=== PATIENT | female | born 1960 | race Caucasian/White ===

== ENCOUNTER 2017-03-01 05:27 | Observation (INO) | payer OTHER ==
--- NOTE | 2017-02-26 10:52 | GHP ---
[f rep st] PREOP HISTORY AND PHYSICAL DATE OF ADMISSION: 03/01/2017 CHIEF COMPLAINT: Ventral incisional hernia. HISTORY OF PRESENT ILLNESS: The patient is a 56-year-old female with a history of a small bowel obs truction requiring laparotomy and adhesiolysis about a year ago. At that time, she had a recurrent ventral hernia that was also repaired as part of her incision. She returns today with a new bulge a t the superior part of her upper midline scar, directly adjacent to an old open gallbladder scar. T he hernia has gotten larger and is becoming painful. She particularly notices this after eating. S he does wear a supportive abdominal garment that keeps it mostly reduced. PAST MEDICAL HISTORY: Recurrent bowel obstructions and ventral hernias as described above. PAST SURGICAL HISTORY: Appendectomy, open cholecystectomy, ventral hernia repair, laparotomy for sm all bowel obstruction with adhesiolysis and repair of recurrent ventral hernia. MEDICATIONS: Wellbutrin, Provera. ALLERGIES: No known drug allergies. SOCIAL HISTORY: Patient is . She denies tobacco use. 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 REVIEW OF SYSTEMS: 10-point review of systems is negative aside from that in the HPI. PHYSICAL EXAMINATION: GENERAL: Reveals an alert and oriented, extremely thin, 56-year-old female, in no acute distress. HEENT: Normocephalic, atraumatic. Pupils equal and round. NECK: Supple. CHEST: Clear to auscultation bilaterally without wheezes, rhonchi, or rales. CARDIAC: Regular rat e and rhythm without murmurs. ABDOMEN: Soft, with an epigastric reducible incisional hernia and mu ltiple scars. GENITAL: Deferred. EXTREMITIES: Warm and dry, without edema. NEURO: Grossly inta ct. PSYCH: Normal mood and affect. IMPRESSION: This is a 56-year-old female with a recurrent incisional ventral hernia. PLAN: Plan is to proceed with an open ventral hernia repair with likely use of mesh. As of now, th is hernia appears to be quite focal, but she does have an incision in this area and so we discussed the possibility that her repair could be larger if additional weak spots are found along her old sca r. In this case, she would probably require an overnight stay in the hospital. If the repair is li mited to the one focal area that we know about now, then she could probably go home afterwards. We discussed risks and options, including but not limited to, bleeding, infection, bowel injury, nerve injury, recurrence, damage to surrounding structures, and she requests to proceed when she can get t awa off from her new job. She also understands how to reduce the hernia and the risks and signs and symptoms of incarceration and strangulation. Seen and examined with Dr. Tucker also. /[id number]/MODL
[2017-03-01] MEDS ORDERED: cefOXitin SODIUM 2 GM in D5W 100 ML IV ONE (06:00)
[2017-03-01] MEDS ORDERED: LR 1,000 ML IV ONE (06:04)
[2017-03-01] MEDS ORDERED: LIDOCAINE 1% 2 ML INJ ID PRN (06:04)
--- NOTE | 2017-03-01 07:07 | PDANEPAE ---
ANE History of Present Illness Patient presents for hernia repair ANE Past Medical History - Cardiovascular History Hx Hypertension: No Hx Arrhythmias: No Hx Chest Pain: No Hx Coronary Artery / Peripheral Vascular Disease: No Hx CHF / Valvular Disease: No Hx Palpitations: No - Pulmonary History Hx COPD: No Hx Asthma/Reactive Airway Disease: No Hx Recent Upper Respiratory Infection: No Hx Oxygen in Use at Home: No Hx Sleep Apnea: No Sleep Apnea Screening Result - Last Documented: Negative - Neurologic History Hx Cerebrovascular Accident: No Hx Seizures: No Hx Dementia: No - Endocrine History Hx Diabetes: No - Renal History Hx Renal Disorders: No - Liver History Hx Hepatic Disorders: No - Neurological & Psychiatric Hx Hx Neurological and Psychiatric Disorders: No Neurological / Psychiatric History Comment: DEPRESSION, ANXIETY - Cancer History Hx Cancer: No - Congenital Disorder History Hx Congenital Disorders: No - GI History Gastrointestinal History Comment: GASTRIS,IBS - Other Health History Other Health History: NONE - Chronic Pain History Chronic Pain: No - Surgical History Prior Surgeries: STOMACH OBSTRUCTION 2016 ANE Review of Systems Review of Systems: - Exercise capacity Exercise capacity: >=4 METS METS (RN): 6 METS ANE Patient History - Allergies Allergies/Adverse Reactions: No Known Allergies Allergy (Unverified 03/22/16 19:48) - Home Medications Home medications: home medication list seen and reviewed Home Medications: Dicyclomine [Bentyl 10 MG (*)] 10 mg PO Q4-6PRN PRN 02/27/17 [Last Taken ] Estradiol/Norethindrone Acet [Lopreeza 1 mg-0.5 mg Tablet] 1 each PO DAILY 02/27 [Last Taken 02/28/17] Ibuprofen [Motrin (*)] 200 mg PO DAILY PRN 02/27/17 [Last Taken 02/25/17] buPROPion XL [Wellbutrin Xl] 450 mg PO DAILY 02/27/17 [Last Taken 02/28/17] - NPO status NPO Status: no food or drink >8 hours NPO Since - Liquids (Date): 02/28/17 NPO Since - Liquids (Time): 22:00 NPO Since - Solids (Date): 02/28/17 NPO Since - Solids (Time): 19:30 - Anes Hx Anes Hx: no prior problems - Smoking Hx Smoking Status: Never smoked - Family Anes Hx Family Hx Anesthesia Complications: NONE ANE Labs/Vital Signs - Vital Signs Blood Pressure: 123/79 Heart Rate: 67 Respiratory Rate: 16 O2 Sat (%): 100 Height: 168.91 cm Weight: 54.431 kg ANE Physical Exam - Airway Neck exam: FROM Mallampati Score: Class 1 Mouth exam: normal dental/mouth exam - Pulmonary Pulmonary: no respiratory distress - Cardiovascular Cardiovascular: regular rate and rhythym - ASA Status ASA Status: II ANE Anesthesia Plan Anesthesia Plan: general endotracheal anesthesia (RBA discussed)
--- NOTE | 2017-03-01 07:15 | PDHPUP ---
History & Physical Update H&P update statement: This history and physical update is based on an assessment of the patient which was completed after admission or registration (within 24 hours), but prior to the surgery/procedure. H&P update: H&P reviewed & patient examined, no change in patient's condition since H&P completed
[2017-03-01] MEDS ORDERED: BUPIVACAINE 0.5% 30 ML SDV ONE (07:42)
[2017-03-01] MEDS ORDERED: fentaNYL 100 MCG/2 ML INJ ONE ×4 (07:53→10:32)
[2017-03-01] MEDS ORDERED: PROPOFOL 200 MG/20 ML VIAL ONE (07:53)
[2017-03-01] MEDS ORDERED: ROCURONIUM 50 MG/5 ML VIAL ONE ×2 (07:55→08:38)
[2017-03-01] MEDS ORDERED: DEXAMETHASONE 4 MG/ML VIAL ONE (08:10)
[2017-03-01] MEDS ORDERED: ONDANSETRON 4 MG/2 ML VIAL ONE (08:10)
[2017-03-01] MEDS ORDERED: LR 500 ML IV PRN ×2 (08:49→09:39)
[2017-03-01] MEDS ORDERED: NALOXONE HCL 0.4 MG/ML INJ IVP PRN ×2 (08:49→09:39)
[2017-03-01] MEDS ORDERED: fentaNYL 100 MCG/2 ML INJ IVP PRN (08:49)
[2017-03-01] MEDS ORDERED: ONDANSETRON 4 MG/2 ML VIAL IVP PRN ×2 (08:49→09:39)
[2017-03-01] MEDS ORDERED: SUGAMMADEX SODIUM 200 MG/2 ML VIAL IVP ONE (09:05)
[2017-03-01] MEDS ORDERED: HYDROCODONE/APAP 5/325 TAB PO PRN (09:39)
[2017-03-01] MEDS ORDERED: OXYCODONE/APAP 5/325 TAB PO PRN (09:39)
--- NOTE | 2017-03-01 09:48 | POSTOPPROG ---
Post Op Note Date of Operation: 03/01/17 Surgeon: Cas Tucker Natural Fabricator: Jackie Singh Anesthesiologist: Radha Anesthesia: GET(General Endotracheal) Pre-op Diagnosis: Incisional ventral hernia Post-op Diagnosis: Same Indication: Pain Procedure: Open incisional hernia repair with mesh Inf/Abcess present in the surg proc area at time of surgery?: No Depth: Organ Space EBL: Minimal Specimen(s): ventral hernia sac
[2017-03-01] MEDS ORDERED: ACETAMINOPHEN 325 MG TAB PO PRN (09:50)
[2017-03-01] MEDS ORDERED: HYDROmorphONE/DILAUDID 1 MG/ML INJ IVP PRN (09:50)
[2017-03-01] MEDS ORDERED: ONDANSETRON DISINTEGRATING 4 MG TAB PO PRN (09:50)
[2017-03-01] MEDS: fentaNYL 100 MCG/2 ML INJ IVP PRN ×4 (09:53→10:40)
[2017-03-01] MEDS ORDERED: HYDROmorphONE/DILAUDID 1 MG/ML INJ ONE (10:02)
--- NOTE | 2017-03-01 10:06 | POSTANESTH ---
Post Anesthetic Evaluation Cardiovascular Status: Normal, Stable Respiratory Status: Normal, Stable Level of Consciousness/Mental Status: Can Participate in Eval Pain Control: Inadeq, Add Tx Required Nausea/Vomiting Control: Adequate, Prn Tx Ordered Complications Possibly Related to Anesthesia: None Noted
[2017-03-01] MEDS: HYDROmorphONE/DILAUDID 1 MG/ML INJ IVP PRN ×5 (10:08→20:04)
[2017-03-01] MEDS: NS 1,000 ML IV SCH (11:36)
--- NOTE | 2017-03-01 17:34 | SOAPPROG ---
SOAP Progress Note Assessment/Plan: Assessment: POSTOP OKAY / TOLERATING LIQUIDS / WOUND OKAY / AFEBRILE Plan: HOME IN THE A.M. 03/01/17 17:33 Objective: Vital Signs Temp Pulse Resp BP Pulse Ox 36.7 C 79 16 116/71 94 03/01/17 14:30 03/01/17 14:30 03/01/17 14:30 03/01/17 14:30 03/01/17 14:30 02/28/17 03/01/17 03/02/17 05:59 05:59 05:59 Intake Total 1000 Balance 1000 ICD10 Worksheet Patient Problems: Problems Problem Status Onset Small bowel obstruction Acute
[2017-03-01] MEDS: ONDANSETRON DISINTEGRATING 4 MG TAB PO PRN (17:37)
[2017-03-01] MEDS ORDERED: D5W 1/2 NS W/ 20 KCl/L 1,000 ML IV SCH (17:45)
[2017-03-01] MEDS ORDERED: KETOROLAC 30 MG/1 ML SDV IVP ONE (17:45)
[2017-03-01] MEDS: KETOROLAC 15 MG/1 ML SDV IVP SCH (22:34)
[2017-03-02] MEDS: NS 1,000 ML IV SCH ×2 (01:10→15:02)
[2017-03-02] MEDS: HYDROmorphONE/DILAUDID 1 MG/ML INJ IVP PRN ×5 (03:05→19:23)
[2017-03-02] MEDS: KETOROLAC 15 MG/1 ML SDV IVP SCH ×4 (05:01→22:30)
--- NOTE | 2017-03-02 09:43 | SOAPPROG ---
SOAP Progress Note Assessment/Plan: Assessment: POSTOP OKAY / TOLERATING LIQUIDS / WOUND OKAY / AFEBRILE Plan: HOME IN THE A.M. 03/01/17 17:33 03/02/17 09:42 SOME NAUSEA BUT OVERALL DOING WELL / AFEBRILE/ ABD SOFT/ WOUND OK/ POSSIBLY HOME TODAY IF EATING OK Objective: Vital Signs Temp Pulse Resp BP Pulse Ox 36.6 C 72 18 110/72 93 03/02/17 07:32 03/02/17 07:32 03/02/17 07:32 03/02/17 07:32 03/02/17 07:32 03/01/17 03/02/17 03/03/17 05:59 05:59 05:59 Intake Total 1950 Output Total 150 Balance 1800 ICD10 Worksheet Patient Problems: Problems Problem Status Onset Small bowel obstruction Acute
[2017-03-02] MEDS: ONDANSETRON DISINTEGRATING 4 MG TAB PO PRN (15:01)
[2017-03-02] MEDS: OXYCODONE/APAP 5/325 TAB PO PRN (21:08)
[2017-03-02 22:04] VITALS: RESP 16
[2017-03-02] MEDS ORDERED: traZODone 50 MG TAB PO PRN (22:18)
[2017-03-03] MEDS: OXYCODONE/APAP 5/325 TAB PO PRN ×3 (02:37→10:04)
[2017-03-03] MEDS: NS 1,000 ML IV SCH (02:38)
[2017-03-03 04:59] VITALS: O2SAT 92
[2017-03-03] MEDS: KETOROLAC 15 MG/1 ML SDV IVP SCH ×2 (05:02→11:07)
[2017-03-03 07:13] VITALS: BP 124/75; PULSE 73; TEMP 98.6
[2017-03-03] MEDS ORDERED: buPROPion XL 150 MG TAB PO SCH (09:00)
[2017-03-03] MEDS ORDERED: ENOXAPARIN 40 MG/0.4 ML SYR SC SCH (09:00)
--- NOTE | 2017-03-03 10:33 | SOAPPROG ---
SOAP Progress Note Assessment/Plan: Assessment: POSTOP OKAY / TOLERATING LIQUIDS / WOUND OKAY / AFEBRILE Plan: HOME IN THE A.M. 03/01/17 17:33 03/02/17 09:42 SOME NAUSEA BUT OVERALL DOING WELL / AFEBRILE/ ABD SOFT/ WOUND OK/ POSSIBLY HOME TODAY IF EATING OK 03/03/17 10:33 DOING BETTER TODAY / WOUND OKAY / CHEST CLEAR / EATING / ABDOMEN SOFT WITH POSITIVE BOWEL SOUNDS PLAN IS HOME TODAY Objective: Vital Signs Temp Pulse Resp BP Pulse Ox 37.0 C 73 16 124/75 H 92 03/03/17 07:13 03/03/17 07:13 03/03/17 07:13 03/03/17 07:13 03/03/17 07:13 03/02/17 03/03/17 03/04/17 05:59 05:59 05:59 Intake Total 1950 Output Total 150 1500 Balance 1800 -1500 ICD10 Worksheet Patient Problems: Problems Problem Status Onset Small bowel obstruction Acute
--- NOTE | 2017-03-03 11:52 | GOP ---
[f rep st] OPERATIVE REPORT DATE OF OPERATION: 03/01/2017 SURGEON: Cas Tucker MD MOBILE TESTER: Jackie Singh PA-C. ANESTHESIOLOGIST: Dr. Garcia. PREOPERATIVE DIAGNOSIS: Incisional ventral hernia. POSTOPERATIVE DIAGNOSIS: Incisional ventral hernia. PROCEDURE PERFORMED: Open incisional hernia repair with mesh. FINDINGS: Patient was found to have an 8 cm midline ventral hernia defect with markedly attenuated f ascia forming the hernia sac. ESTIMATED BLOOD LOSS: Less than 50 cc. She was taken to the recovery room in good condition. DESCRIPTION OF PROCEDURE: The patient taken to the operating room where she received satisfactory ge neral endotracheal anesthesia by Dr. Garcia. She was prepped and draped in the usual sterile fashion. A vertical midline incision was made through the previous old scar. Dissection extended down throu gh subcutaneous tissue. The hernia sac was dissected free from surrounding subcutaneous tissue and f rom the skin itself back to decent fascia. The sac was then opened. Adhesions were freed up and the bowel was reduced from the anterior abdominal wall. Excess sac and attenuated fascia were then exci sed. Hemostasis was obtained with electrocautery. A dual-sided Covidien mesh patch was placed subfa scially and secured around the periphery with interrupted 0 Ethibond mattress sutures, approximately 2-3 cm back from the fascial opening. Fascial repair was then made directly with #1 Ethibond figure- of-eight sutures. Wound was infiltrated with 0.25% Marcaine. Subcu was closed with 3-0 Vicryl, the skin with a 4-0 Monocryl subcuticular stitch. She tolerated the procedure well. The wound was infil trated with 0.25% Marcaine. COMPLICATIONS: There were no complications. /[id number]/MODL
--- NOTE | 2017-03-03 17:07 | ASDISCHSUM ---
Discharge Information Plan Status:Home with No Needs Medically Cleared to Leave: Discharge Date:03/03/2017 11:41 AM CM D/C Disposition:Home, Routine, Self-Care ADT D/C Disposition:Home, Routine, Self-Care Projected Discharge Date:03/03/2017 12:00 AM Transportation at D/C:Family Discharge Delay Reason: Follow-Up Date:03/03/2017 12:00 AM Discharge Slot: Final Diagnosis:s/p ventral hernia repair Placement Information Patient Contact Information Contact Name:CHIO Relationship: Address:[address] [place] Work Phone: [facility]:[place] Alternate Phone: [facility]/Zip Code:[place] [address] Email: Financial Information Financial Class:HMO and PPO Plans Primary Plan Desc:[employer] Primary Plan Number:[id number] Secondary Plan Desc: Secondary Plan Number: Assessment Information [facility] CM Progress Note CM Note CM Note Notes: Reviewed chart and spoke w/RN. Anticipate dc home w/ w/no dc needs. Date Signed: 03/02/2017 12:31 PM Electronically Signed By:Isbaella Watts [facility] CM Progress Note CM Note CM Note Notes: Pt is s/p ventral hernia repair. Lives w/her and will be discharging home today w/no CM needs. Date Signed: 03/03/2017 01:46 PM Electronically Signed By:Harleen Hayward Intervention Information
== END 2017-03-03 11:41 | disposition home or self-care (01) ==
LOC: F3N 05:27 → F3E 11:11
PROVIDERS: ADMIT Surgery; ATTEND Surgery
PROC: 0WQF0ZZ Repair Abdominal Wall, Open Approach (ICD-10-PCS; principal; 2017-03-01 07:15)
PROC: 0WUF0JZ Supplement Abdominal Wall with Synthetic Substitute, Open Approach (ICD-10-PCS; principal; 2017-03-01 07:15)
DX: K43.2 Incisional hernia without obstruction or gangrene (principal)
CPT/HCPCS: 49565; 49568; G0378; C1781; J0694; J1100; J1170; J1650; J1885; J2405; J2704; J3010

== ENCOUNTER 2017-07-10 17:33 | Emergency (ER) | payer OTHER ==
[2017-07-10] MEDS ORDERED: LORazepam 1 MG TAB ONE (18:27)
[2017-07-10] MEDS ORDERED: LORazepam 1 MG TAB PO ONE ×3 (18:36→19:22)
[2017-07-10 19:01] LABS: PLATELET COUNT 266 10^3/uL (150-400)
[2017-07-10] MEDS ORDERED: HALOPERIDOL LACT 5 MG/ML INJ ONE (19:16)
[2017-07-10] MEDS ORDERED: OLANZapine 5 MG TAB ONE (21:55)
[2017-07-10] MEDS ORDERED: OLANZapine 5 MG TAB PO ONE (21:57)
--- NOTE | 2017-07-10 22:34 | EDPHY ---
H & P Stated Complaint: ETOH/SI - Personal History LMP (Females 10-55): Post Menopausal Current Tetanus/Diphtheria Vaccine: Yes - Medical/Surgical History Hx Asthma: No Hx Chronic Respiratory Disease: No Hx Diabetes: No Hx Cardiac Disease: No Hx Renal Disease: No Hx Cirrhosis: No Hx Alcoholism: No Hx HIV/AIDS: No Hx Splenectomy or Spleen Trauma: No Other PMH: Appy, dunia, hernia, SBO, PMH: DEPRESSION ETOH hx - Social History Smoking Status: Never smoked HPI/ROS: Chief complaint: Suicidal ideation, on mental health hold History of present illness: This is a 56-year-old female brought to the emergency department by EMS, accompanied by the police for suicidal ideation. The police have placed her on a mental health hold. According to the police they were contacted by the patient's [id number] who stated patient was making threats of killing herself. At one point apparently the sister in law reported that patient even tried to jump out of a moving car. On my evaluation patient adamantly denies any suicidal ideation. She denies homicidal ideation. She denies illness. Her left ankle is sore but she is not sure how this occurred. She denies other potential injuries. Review of systems: A 10 point review of systems was obtained and other than described above was negative (Yahir Hurtado) - Physical Exam Exam: General Appearance: Alert, nontoxic Eyes: PERRLA Respiratory: Lungs clear to auscultation bilaterally Cardiac: Regular rate and rhythm. Gastrointestinal: Bowel sounds normal. Abdomen is soft and nondistended. No tenderness. Neurological: Alert. Strength and sensation intact and symmetrical. Skin: No lesions consistent with trauma on examination. Musculoskeletal: Head is nontender. The spine is nontender. Chest wall intact to palpation. Mild edema to the left ankle although she is moving it well and walking moving the other extremities without difficulty. Psychiatric: Patient is agitated (Yahir Hurtado) Constitutional: Initial Vital Signs Temperature (C) 36.3 C 07/10/17 18:04 Heart Rate 127 H 07/10/17 18:04 Respiratory Rate 16 18 18:04 Blood Pressure 170/112 H 18 18:04 O2 Sat (%) 91 L 07/10/17 18:04 O2 Delivery Mode Room Air Allergies/Adverse Reactions: No Known Allergies Allergy (Unverified 07/10/17 18:25) Home Medications: Medication Instructions Recorded Dicyclomine [Bentyl 10 MG (*)] 10 mg PO Q4-6PRN PRN 02/27/17 Estradiol/Norethindrone Acet 1 each PO DAILY 02/27/17 [Lopreeza 1 mg-0.5 mg Tablet] Ibuprofen [Motrin (*)] 200 mg PO DAILY PRN 02/27/17 buPROPion XL [Wellbutrin Xl] 450 mg PO DAILY 02/27/17 Medical Decision Making - Diagnostics Imaging: I viewed and interpreted images myself ED Course/Re-evaluation: Patient seen under the supervision of my secondary supervising physician Dr. Nicolas Davis. Patient presents to the emergency department on a mental health hold. She is intoxicated and agitated. She has required Ativan and Zyprexa to calm down. She will need to sober up before psychiatric evaluation. Care of patient turned over to my attending physician Dr. José Luis Andrews at end of shift. (Yahir Hurtado) [id number] No acute events overnight patient has been sleeping. Patient on M1 hold. Patient signed over to Dr. Oshea at 7am Pending EVAL. (José Luis Andrews) I took over care of this patient at 7:00 a.m.. This patient is on an M1 hold for suicidal ideation and alcohol intoxication. He is being evaluated by Behavioral Health at this time. 7:50 a.m., patient seen and evaluated by Behavioral Health. The M1 hold has been lifted. They have cleared this patient for discharge. Follow-up has been arranged through [facility]. The patient endorses this plan. She feels comfortable going home. Return to emergency department precautions reviewed. She understands for follow-up. All of her questions were answered. She was discharged in good condition. (Marisa Cruz) Differential Diagnosis: Included but not limited to substance abuse, depression, bipolar, schizophrenia (Yahir Hurtado) - Data Points Laboratory Results: Laboratory Results 07/10/17 18:45 07/10/17 18:45 Medications Given: Discontinued Medications Lorazepam (Ativan) 2 mg PO EDNOW ONE Stop: 07/10/17 18:37 Last Admin: 07/10/17 18:38 Dose: 2 mg Lorazepam (Ativan) 2 mg PO EDNOW ONE Stop: 07/10/17 19:22 Last Admin: 07/10/17 19:47 Dose: Not Given Lorazepam (Ativan) 1 mg PO EDNOW ONE Stop: 07/10/17 19:23 Last Admin: 07/10/17 19:24 Dose: 1 mg Lorazepam (Ativan) 1 mg PO EDNOW ONE Stop: 07/11/17 02:11 Last Admin: 07/11/17 02:14 Dose: 1 mg Olanzapine (Olanzapine) 10 mg PO ONCE ONE Stop: 07/10/17 21:58 Last Admin: 07/10/17 22:25 Dose: 10 mg Departure - Departure Disposition: Home, Routine, Self-Care Clinical Impression: Alcohol intoxication, Depression Condition: Good Instructions: Depression (ED) Additional Instructions: Read and follow provided instructions. Follow-up with [facility] as instructed by Behavioral Health within the next 1-2 days. Return to the emergency department for worsening depression, suicidal thoughts or other serious concerns. Do not drink alcohol. Referrals: [facility],. [Clinic] - As per Instructions
[2017-07-11] MEDS ORDERED: LORazepam 1 MG TAB PO ONE (02:10)
[2017-07-11 07:54] VITALS: BP 171/92; PULSE 104; RESP 17; TEMP 97.5; O2SAT 94
== END 2017-07-11 08:00 | disposition home or self-care (01) ==
LOC: EDUNIT#
DX: F32.9 Major depressive disorder, single episode, unspecified (principal); F10.129 Alcohol abuse with intoxication, unspecified
CPT/HCPCS: 80305; G0480; J1630

== ENCOUNTER → 2018-04-08 | Outpatient (CLI) | payer OTHER | LOC: FIMAGING 12:52 | PROVIDERS: ATTEND Physician Assistant | DX: M25.532 Pain in left wrist (principal) ==